=== PATIENT | male | born 1945 | race Caucasian/White ===

== ENCOUNTER 2016-12-01 16:34 | Inpatient (IN) | payer OTHER, MEDICARE ==
--- NOTE | 2016-12-01 16:48 | EDPHY ---
H & P Time Seen by Provider: 12/01/16 16:47 HPI/ROS: CHIEF COMPLAINT: Shortness of breath HISTORY OF PRESENT ILLNESS: This 71-year-old man had a pulmonary embolism 4 years ago and is not currently anticoagulated. He has been increasingly short of breath over the last 3 weeks and symptoms are moderate to severe today and that going just up a 40 foot incline he gets short of breath whereas normally he can do a 1.2 mile circular walk without really any symptoms. No cough or chest pain. Associated 2 days ago with transient left leg pain. No leg swelling. Worse with exertion. REVIEW OF SYSTEMS: Eye: no change in vision ENT: no sore throat Cardiac: no chest pain or syncope Pulmonary: no cough or SOB Abdomen: no vomiting, diarrhea, abdominal pain Musculoskeletal: no back pain Skin: no rash Neuro: no headache Constitutional: no fever : no urinary symptoms A comprehensive 10 point review of systems is otherwise negative aside from elements mentioned in the history of present illness. PAST MEDICAL HISTORY: Pulmonary embolism, left hip replacement, lumbar fusion. Family history positive for venous thromboembolism in his mother. Social history: , nonsmoker. General Appearance: Alert and conversant, cooperative. Eyes: No scleral icterus. ENT, Mouth: Normal mucous membranes. Respiratory: Normal respiratory effort, breath sounds equal, lungs are clear to auscultation. Cardiovascular: Regular rate and rhythm. Gastrointestinal: Abdomen is soft and non tender. Neurological: Alert and oriented x3. Normally conversant. Face symmetric, normal movement and sensation in all extremities. Skin: Warm and dry, no rashes. Musculoskeletal: No peripheral edema and no joint swelling. Psychiatric: Not agitated. Emergency Department course/MDM: Plan for CT chest, EKG and troponin. Moderate to high suspicion for pulmonary embolism, recurrent. 1750: Results discussed, CT angiography reviewed personally by myself and discussed with Dr. Webb at 5:45 p.m. is high volume pulmonary emboli bilateral. Lovenox 1mg/kg SQ, given in ED, admit for further monitoring. Smoking Status: Never smoked Constitutional: Initial Vital Signs Temperature (C) 36.6 C 12/01/16 16:39 Heart Rate 63 12/01/16 16:39 Respiratory Rate 18 12/01/16 16:39 Blood Pressure 160/96 H 12/01/16 16:39 O2 Sat (%) 95 12/01/16 16:39 O2 Delivery Mode Room Air Allergies/Adverse Reactions: No Known Allergies Allergy (Verified 05/24/12 20:35) Home Medications: Medication Instructions Recorded Aspirin [Aspirin 81mg (OTC)] 81 mg PO DAILY 05/24/12 Calcium Carbonate [Tums 500MG 500 mg PO HS PRN 05/24/12 (OTC)] Ranitidine HCl [Zantac] 150 mg PO HS PRN 12/01/16 Medical Decision Making - Diagnostics EKG Interpretation: 12-lead EKG interpreted by me; official reading is in trace master. My interpretation is sinus rhythm with right bundle branch block and left anterior fascicular block without acute ischemic changes, unchanged from 05/26/2012. Imaging: CT pulmonary arteriogram personally evaluated by myself shows bilateral pulmonary emboli. Differential Diagnosis: Differential diagnosis considered for shortness of breath including but not limited to pulmonary infectious process, COPD, asthma, pulmonary embolus and congestive heart failure. Consult/Admit Bed Type: [place] 638pm - Data Points Laboratory Results: Laboratory Results 12/01/16 17:04 12/01/16 17:04 12/01/16 12/01/16 12/01/16 17:04 17:04 17:04 WBC 11.01 10^3/uL H 10^3/uL (3.80-9.50) RBC 5.25 10^6/uL 10^6/uL (4.40-6.38) Hgb 16.4 g/dL g/dL (13.7-17.5) POC Hgb 16.0 gm/dL gm/dL (14.5-17.3) Hct 47.5 % % (40.0-51.0) POC Hct 47 % % (42.8-50.6) MCV 90.5 fL fL (81.5-99.8) MCH 31.2 pg pg (27.9-34.1) MCHC 34.5 g/dL g/dL (32.4-36.7) RDW 13.4 % % (11.5-15.2) Plt Count 155 10^3/uL 10^3/uL (150-400) MPV 9.5 fL fL (8.7-11.7) Neut % (Auto) Not Reported Lymph % (Auto) Not Reported [place] % (Auto) Not Reported Eos % (Auto) Not Reported Baso % (Auto) Not Reported Nucleat RBC Rel Count 0.0 % % (0.0-0.2) Absolute Neuts (auto) Not Reported Absolute Lymphs (auto) Not Reported Absolute Monos (auto) Not Reported Absolute Eos (auto) Not Reported Absolute Basos (auto) Not Reported Absolute Nucleated RBC 0.00 10^3/uL 10^3/uL (0-0.01) Immature Gran % Not Reported Seg Neutrophils % 67 % % Band Neutrophils % 5 % % Lymphocytes % 24 % % Monocytes % 4 % % Immature Gran # Not Reported Absolute Seg Neuts 7.38 10^/uL H 10^/uL (1.70-6.50) Absolute Band Neuts 0.55 10^3/uL 10^3/uL (0.00-0.70) Absolute Lymphocytes 2.64 10^3/uL 10^3/uL (1.00-3.00) Absolute Monocytes 0.44 10^3/uL 10^3/uL (0.30-0.80) RBC/WBC/PLT Morphology NORMAL (NORMAL) Hypersegmented Neuts 1+ H Atypical Lymphocytes 1+ H Platelet Estimate ADEQUATE (ADEQ) POC Sodium 142 mEq/L mEq/L (134-144) Sodium 139 mEq/L mEq/L (134-144) POC Potassium 3.8 mEq/L mEq/L (3.3-5.0) Potassium 4.0 mEq/L mEq/L (3.5-5.2) POC Chloride 108 mEq/L mEq/L (96-108) Chloride 108 mEq/L mEq/L (97-110) Carbon Dioxide 22 mEq/l mEq/l (22-31) Anion Gap 9 mEq/L mEq/L (8-16) POC BUN 24 mg/dL H mg/dL (7-23) BUN 24 mg/dL H mg/dL (7-23) Creatinine 1.1 mg/dL mg/dL (0.7-1.3) POC Creatinine 1.1 mg/dL mg/dL (0.8-1.5) Estimated GFR > 60 Glucose 90 mg/dL mg/dL (70-100) POC Glucose 94 mg/dL mg/dL (70-100) Calcium 9.1 mg/dL mg/dL (8.5-10.4) Troponin I 0.040 ng/mL H ng/mL (0-0.034) Medications Given: Discontinued Medications Enoxaparin Sodium (Lovenox) 85 mg SC EDNOW ONE Stop: 12/01/16 18:39 Last Admin: 12/01/16 19:07 Dose: 85 mg Point of Care Test Results: 12/01/16 17:04 POC Sodium 142 POC Potassium 3.8 POC Chloride 108 POC BUN 24 H POC Creatinine 1.1 POC Glucose 94 Departure - Departure Disposition: [facility] Inpatient Acute Clinical Impression: Pulmonary emboli Qualifiers: Pulmonary embolism type: other Chronicity: acute Acute cor pulmonale presence: without acute cor pulmonale Qualified Code(s): I26.99 - Other pulmonary embolism without acute cor pulmonale Condition: Fair
[2016-12-01] MEDS ORDERED: IOPAMIDOL (ISOVUE 370) 100 ML BTL IV ONE (17:15)
--- NOTE | 2016-12-01 17:17 | CPEKG ---
Heart Rate: 54 RR Interval: 1111 P-R Interval: 196 QRSD Interval: 140 QT Interval: 472 QTC Interval: 448 P Brusly: 20 QRS Brusly: -79 T Wave Brusly: -36 EKG Severity - ABNORMAL ECG - EKG Impression: SINUS RHYTHM EKG Impression: RBBB AND LAFB Electronically Signed By: Braden Oleary 01-Dec-2016 17:26:51
[2016-12-01 17:20] LABS: ADD DIFF? YES; ADD MORPH? NO; ADD SCAN? NO; ATYPICAL LYMPHOCYTE FLAG 0 (0-99); FRAGMENT RBC FLAG 0 (0-99); HEMATOCRIT 47.5 % (40.0-51.0); HEMOGLOBIN 16.4 g/dL (13.7-17.5); LEFT SHIFT FLG 20 (0-99); LIPEMIA HEMOLYSIS FLAG 90 (0-99); MEAN CELL HEMOGLOBIN 31.2 pg (27.9-34.1); MEAN CELL HEMOGLOBIN CONCENTR. 34.5 g/dL (32.4-36.7); MEAN CELL VOLUME 90.5 fL (81.5-99.8); MEAN PLATELET VOLUME 9.5 fL (8.7-11.7); PLATELET CLUMPS FLAG 0 (0-99); PLATELET COUNT 155 10^3/uL (150-400); RED BLOOD CELL COUNT 5.25 10^6/uL (4.40-6.38); RED CELL DISTRIBUTION WIDTH 13.4 % (11.5-15.2)
[2016-12-01 17:38] LABS: ANION GAP 9 mEq/L (8-16); CALCIUM 9.1 mg/dL (8.5-10.4); CARBON DIOXIDE 22 mEq/l (22-31); CHLORIDE 108 mEq/L (97-110); CREATININE 1.1 mg/dL (0.7-1.3); GLOMERULAR FILTRATION RATE > 60; GLUCOSE 90 mg/dL (70-100); SODIUM 139 mEq/L (134-144)
[2016-12-01 17:40] LABS: PLATELET ESTIMATE ADEQUATE (ADEQ)
[2016-12-01 17:44] LABS: HYPERSEGMENTED NEUTROPHILS 1+
[2016-12-01] MEDS ORDERED: ENOXAPARIN 100 MG/ML SYR SC ONE (18:38)
[2016-12-01] MEDS ORDERED: ONDANSETRON 4 MG/2 ML VIAL IVP PRN (19:02)
[2016-12-01] MEDS ORDERED: ACETAMINOPHEN 325 MG TAB PO PRN (19:02)
[2016-12-01] MEDS ORDERED: ONDANSETRON DISINTEGRATING 4 MG TAB PO PRN (19:02)
[2016-12-01 19:04] LABS: INR 1.53 (0.83-1.16); PROTIME(PATIENT) 18.4 SEC (12.0-15.0)
[2016-12-01] MEDS: WARFARIN SODIUM 7.5 MG TAB PO SCH (20:43)
[2016-12-01] MEDS ORDERED: CALCIUM CARBONATE 500 MG CHEWABLE TAB PO PRN (20:48)
[2016-12-01] MEDS ORDERED: FAMOTIDINE 20 MG TAB PO PRN (21:00)
--- NOTE | 2016-12-01 22:24 | GHP ---
[f rep st] HISTORY AND PHYSICAL DATE OF ADMISSION: 12/01/2016 The patient is a 71-year-old gentleman with a history of MGUS and PE who presents with a several wee ks' history of shortness of breath. This started few weeks ago in [place]. This is the first time he has sought care. It got worse tonight. He has not had hemoptysis. He has not had swelling in his legs. He has not had long car trips or plane trips. He has not had recent surgery or hospitalizati ons. He stopped taking Coumadin about 2 years ago. He has been on a daily aspirin since. He curre ntly feels well without presyncopal symptoms, but he does have dyspnea. REVIEW OF SYSTEMS: Complete 10-point review of systems conducted and negative except as noted in th e HPI. PAST MEDICAL HISTORY: 1. MGUS followed by Dr. Sandoval. Due to see him in 2 weeks. 2. Pulmonary embolism, large, during his last hospitalization in 2011. ALLERGIES: No known drug allergies. HOME MEDICATIONS: Aspirin. SOCIAL HISTORY: He has 1-2 glasses of wine, small, daily. Nonsmoker. Lives in [place]. Retired. FAMILY HISTORY: Notable for a PE in his mother and brother. She has a filter. PHYSICAL EXAMINATION: VITAL SIGNS: Temp 36.6, blood pressure 160/96, pulse 63, breathing 18 times a minute, 95% on room air. GENERAL: No acute distress. HEENT: Sclerae anicteric. Oropharynx ramírez ar. Mucous membranes are moist. NECK: Supple without lymphadenopathy or JVD. LUNGS: Clear to au scultation bilaterally. HEART: S1, S2 without split S2. ABDOMEN: Soft, nontender, nondistended. LOWER EXTREMITIES: There is trace edema of the right leg. There is no edema on the left. Calves nontender. SKIN: Without rash. NEUROLOGIC: Nonfocal. LABORATORY DATA: Sodium 139, potassium 4.0, chloride 108, bicarb 22, BUN 24, creatinine 1.1. His b aseline creatinine is about 1.1. Troponin 0.04. This is similar to the levels he had in May with his pulmonary embolism. CTA of the chest shows large bilateral PE's with no pulmonary infarc t. This is described as large clot burden. EKG, interpreted by me, shows sinus rhythm, right bundl e branch block and left anterior fascicular block. No ST or T-wave changes. I discussed the case w ith Dr. Braden Oleary. ASSESSMENT AND PLAN: This is a 71-year-old gentleman with recurrent pulmonary embolism. 1. Pulmonary embolism. Large clot burden that is apparently tolerated well hemodynamically. For t he time being, he is noted to be bradycardic with normal blood pressures. He did have an enlarged r ight ventricle on CT. 2. Given the size of his clot burden, I will check bilateral ultrasounds (he does have some edema o n the right) and an echocardiogram. If he has a combination of large DVT and right heart strain, he may be a candidate for a filter. If not he probably does not warrant one. We start him on enoxapa rin. 3. Monoclonal gammopathy of undetermined significance. This is followed as an outpatient. 4. Hypertension. We will follow. 5. Elevated troponin. This is indicative of right heart strain. 6. Elevated BUN. The patient appears euvolemic. We will follow. 7. Prophylaxis. Pharmacologic prophylaxis contraindicated in that he is therapeutically anticoagul ated. DISPOSITION: Inpatient status. /[id number]/MODL
[2016-12-02 04:39] LABS: INR 1.63 (0.83-1.16); PROTIME(PATIENT) 19.4 SEC (12.0-15.0)
[2016-12-02 04:53] LABS: ABSOLUTE IMMATURE GRANULOCYTES 0.28 10^3/uL (0.00-0.10); ADD DIFF? NO; ADD MORPH? NO; ADD SCAN? NO; ATYPICAL LYMPHOCYTE FLAG 0 (0-99); FRAGMENT RBC FLAG 0 (0-99); HEMATOCRIT 44.7 % (40.0-51.0); HEMOGLOBIN 15.4 g/dL (13.7-17.5); LEFT SHIFT FLG 20 (0-99); LIPEMIA HEMOLYSIS FLAG 90 (0-99); MEAN CELL HEMOGLOBIN 31.9 pg (27.9-34.1); MEAN CELL HEMOGLOBIN CONCENTR. 34.5 g/dL (32.4-36.7); MEAN CELL VOLUME 92.5 fL (81.5-99.8); MEAN PLATELET VOLUME 9.9 fL (8.7-11.7); PLATELET CLUMPS FLAG 0 (0-99); PLATELET COUNT 144 10^3/uL (150-400); RED BLOOD CELL COUNT 4.83 10^6/uL (4.40-6.38); RED CELL DISTRIBUTION WIDTH 13.4 % (11.5-15.2)
[2016-12-02 04:56] LABS: ANION GAP 8 mEq/L (8-16); CARBON DIOXIDE 23 mEq/l (22-31); CHLORIDE 109 mEq/L (97-110); GLUCOSE 91 mg/dL (70-100); POTASSIUM 4.1 mEq/L (3.5-5.2); SODIUM 140 mEq/L (134-144)
[2016-12-02 04:57] LABS: CALCIUM 9.2 mg/dL (8.5-10.4); GLOMERULAR FILTRATION RATE > 60
[2016-12-02 05:06] LABS: TROPONIN I 0.021 ng/mL (0-0.034)
[2016-12-02] MEDS: ENOXAPARIN 80 MG/0.8 ML SYR SC SCH ×3 (08:40→20:39)
--- NOTE | 2016-12-02 12:32 | HOSPPROG ---
Hospitalist Progress Note Assessment/Plan: DIAGNOSES: # acute recurrent pulmonary emboli and bilateral DVT legs -2nd episode, was on aspirin at this time PLANS: -Continue current anticoagulation -I have reviewed with the patient the options for either using warfarin as he did in the past or newer oral anticoagulation at discharge and he will consider the option -Anticipate likely discharge home tomorrow if he remains stable SUBJECTIVE: no chest pain, no dyspnea, ambulating well in the hallway No bleeding symptoms OBJECTIVE Vitals reviewed: normal vital signs Associate Art Director, my review: All sinus rhythm Exam: alert oriented skin warm dry color ok No signs of bleeding or bruising resps not labored lungs clear BSs heart regular abd soft nondistended nontender, bowel sounds present limbs warm, no edema iv site ok Doppler ultrasound of legs reviewed: Bilateral DVTs present Objective: Vital Signs Temp Pulse Resp BP Pulse Ox 36.5 C 58 L 18 149/90 H 92 12/02/16 08:00 12/02/16 08:00 12/02/16 08:00 12/02/16 08:00 12/02/16 08:00 Laboratory Results 12/02/16 03:59 12/02/16 03:59 12/01/16 12/02/16 12/03/16 06:59 06:59 06:59 Intake Total 400 Balance 400 PT 19.4 SEC (12.0-15.0) H 12/02/16 03:59 INR 1.63 (0.83-1.16) H 12/02/16 03:59 ICD10 Worksheet Patient Problems: Problems Problem Status Onset Pulmonary emboli Acute Sepsis - Septicemia Active
--- NOTE | 2016-12-02 12:43 | ECHO ---
[id number] + + [address] : : [place] [address] : : [phone] + + Adult Echocardiographic Report + + :Name: RADHA GEORGE Brittney Date: 12/02/2016 10:11 AM BP: 144/90 mmHg : : Hospital Admission Number: [id number] Location: 204: :: 1945 Gender: Male Height: 70 in : :Age: 71 yrs Race: WH Weight: 188 lb : :Reason For Study: rt heart strain : : BSA: 2.0 meters2 : :History: large pulmonary embolism, incr trop : + + MMode/2D Measurements \T\ Calculations IVSd: 1.0 cm RVDd: 3.4 cm FS: 37.6 % LVLd ap4: 8.7 cm LVPWd: 1.2 cm LVIDd: 4.5 cmEDV(Teich): 92.1 mlEDV(MOD-sp4): 137.0 ml LVIDs: 2.8 cmESV(Teich): 29.6 mlLVLs ap4: 6.8 cm EF(Teich): 67.8 % ESV(MOD-sp4): 45.0 ml EF(MOD-sp4): 67.2 % SV(MOD-sp4): 92.0 ml Normal Measurement Values: + + :LVIDd (3.5-5.7cm) IVSd (0.6-1.1cm) LVPWd (0.6-1.1cm) Aortic Root (2.0-3.7cm)Left Atrium (1.5-4.0cm): :LV Vol(d) (76-115ml) LV Vol(s) (29-48ml) Ejec Fraction (50-65%)PV Amando (0.6- 1.2m/s) TV Amando (0.4-1.0m/s) : :MV E Amando (0.8-1.0m/s)MV A Amando (0.3-1.0m/s)LVOT Amando (0.7-1.2m/s) Asc Ao Amando ( 0.9-1.8m/s) : + + Doppler Measurements \T\ Calculations MV E max amando: Ao V2 max: LV V1 max: PA V2 max: 50.3 cm/sec 109.8 cm/sec 74.0 cm/sec 68.8 cm/sec MV A max amando: Ao max P.8 mmHgLV V1 max PG: PA max P.6 cm/sec 2.2 mmHg 1.9 mmHg MV E/A: 0.72 MV dec time: 0.31 sec TR max amando: 274.2 cm/sec TR max P.1 mmHg RAP systole: 5.0 mmHg RVSP(TR): 35.1 mmHg Left Ventricle The left ventricle is normal in size and function. There is mild concentric left ventricular hypertrophy. Ejection Fraction = 65%. No regional wall motion abnormalities noted. Right Ventricle The right ventricle is normal in size and function. Atria The left atrial size is normal. Right atrial size is normal. Mitral Valve The mitral valve is normal in structure and function. There is no mitral valve stenosis. There is trace to mild mitral regurgitation. Tricuspid Valve The tricuspid valve is normal in structure and function. There is no tricuspid stenosis. There is mild tricuspid regurgitation. Right ventricular systolic pressure is 35mmHg. There is Doppler evidence for mild pulmonary hypertension. Aortic Valve The aortic valve is trileaflet. There is no aortic stenosis. Trace aortic regurgitation. Pulmonic Valve The pulmonic valve is not well visualized. Great Vessels The aortic root is normal size. Pericardium/Pleural There is no pericardial effusion. Conclusion A two-dimensional transthoracic echocardiogram with M-mode and Doppler was performed. The left ventricle is normal in size and function. There is mild concentric left ventricular hypertrophy. Ejection Fraction = 65%. Trace to mild mitral regurgitation. Mild tricuspid regurgitation.Trace AI Right ventricular systolic pressure is 35mmHg. Final Reading Physician: Aaliyah Edmond signed on 12/02/2016 12:41 PM Ordering Physician: Ivan Bautista Performed By: Altagracia Mcelroy
[2016-12-02] MEDS: WARFARIN SODIUM 7.5 MG TAB PO SCH (16:37)
[2016-12-03 04:36] LABS: INR 2.1 (0.83-1.16); PROTIME(PATIENT) 23.7 SEC (12.0-15.0)
[2016-12-03] MEDS: ENOXAPARIN 80 MG/0.8 ML SYR SC SCH (08:07)
[2016-12-03] MEDS ORDERED: ENOXAPARIN 80 MG/0.8 ML SYR SC SCH ×3 (10:26→21:00)
[2016-12-03 11:47] VITALS: BP 148/88; PULSE 58; RESP 19; TEMP 97.9; O2SAT 93
[2016-12-03] MEDS ORDERED: WARFARIN SODIUM 5 MG TAB PO SCH (16:00)
--- NOTE | 2016-12-03 20:00 | GDS ---
[f rep st] DISCHARGE SUMMARY DISCHARGE DIAGNOSES: 1. Recurrent bilateral pulmonary emboli. 2. Bilateral deep venous thrombosis. 3. Monoclonal gammopathy of undetermined significance, followed by Dr. Sandoval. CONSULTANTS: None. HISTORY: For details please see dictated history and physical dated December 01, 2016. In brief, anthony ann patient is a 71-year-old male with a history of MGUS and prior pulmonary embolism in 2011, presen dinorah to the emergency department with several weeks of shortness of breath. CT pulmonary angiogram i n the emergency department revealed large bilateral pulmonary emboli without pulmonary infarct. He was admitted to the hospital for further management. HOSPITAL COURSE: The patient is admitted to telemetry unit. Despite his large clot burden, he jose ined hemodynamically stable. Bilateral lower extremity ultrasounds were performed and revealed reth rombosis of the popliteal and calf veins on the left lower extremity. The patient had no significan t swelling or pain. He was started on Lovenox and warfarin was started the following day. He recei sara 2 days of warfarin at 7.5 mg daily and his INR lenka from 1.5 on admission to 2.1. It is unclear why his INR is elevated on arrival. Therefore, on discharge, his Coumadin dose is reduced to 5 mg daily. The plan is to continue overlapping Coumadin with Lovenox for 3 more days at the time of dis charge for a total of 5 days of overlap. He did not require oxygen supplementation throughout his h ospitalization nor did he develop any hypotension. He does give a history of his mother having pulm onary emboli, so there was some suspicion for an underlying hypercoagulable disorder. Since he star dinorah on anticoagulation, at this point I will defer further hypercoagulable workup to Hematology and recommended the patient follow up with his occupational therapy instructor, Dr. Sandoval, to discuss this. DISPOSITION: Patient is discharged home in stable condition. FOLLOWUP: 1. Dr. Cristin Sandoval, hematology, at [facility]. 2. Dr. Jose Church, primary care provider. 3. [facility] for an INR on Monday. DISCHARGE MEDICATIONS: Please see [facility] for complete updated outpatient medication list. New me dications on discharge include Lovenox 80 mg subcutaneous b.i.d. #6, no refills and warfarin 5 mg p. o. daily #30, no refills. Aspirin will be discontinued as he is starting anticoagulation therapy to reduce bleeding risk. He will continue his calcium carbonate and ranitidine as previously prescrib ed. /[id number]/MODL
== END 2016-12-03 13:33 | disposition home or self-care (01) | DRG 176 ==
LOC: F2W 19:36
PROVIDERS: ADMIT Internal Medicine; ATTEND Internal Medicine
DX: I26.99 Other pulmonary embolism without acute cor pulmonale (principal); I82.432 Acute embolism and thrombosis of left popliteal vein; I82.442 Acute embolism and thrombosis of left tibial vein; D47.2 Monoclonal gammopathy; Z86.711 Personal history of pulmonary embolism; Z98.1 Arthrodesis status; Z96.642 Presence of left artificial hip joint; Z83.2 Family history of diseases of the blood and blood-forming organs and certain disorders involving the immune mechanism
CPT/HCPCS: 82495-90; 82784-90; 82947-QW; 86334-90; J1650; Q9967

== ENCOUNTER 2018-07-14 20:48 | Inpatient (IN) | payer OTHER, MEDICARE ==
[2018-07-14] MEDS ORDERED: NS 1,000 ML IV ONE (21:25)
--- NOTE | 2018-07-14 21:28 | EDPHY ---
H & P Stated Complaint: left [facility] to come to [facility] for hospitalization, has cholecystitis Time Seen by Provider: 07/14/18 21:11 HPI/ROS: CHIEF COMPLAINT: Cholecystitis Limitations: Patient had Dilaudid prior to transfer and is unable to recall much of the clinical history; hx via and [facility] HISTORY OF PRESENT ILLNESS: 72-year-old male with mommoclonal gammopathy and prior PE on Xarelto presents with cholecystitis. Onset of right upper quadrant pain 2 days ago. He presented to [facility] and was admitted for right upper quadrant pain. Right upper quadrant ultrasound reveals a calcified gallstone, no evidence of cholecystitis. CT scan was unremarkable. However cholecystitis was suspected because of persistent right upper quadrant pain, leukocytosis, fever, so HIDA scan was obtained.. HIDA scan at 1700 today revealed acute cholecystitis. Ceftriaxone 1 g IV given. The patient decided to leave [facility] and came directly to [facility]. Does not have testing results with him. REVIEW OF SYSTEMS: complete 10 point ROS reviewed and is negative except for the noted elements in the HPI - Personal History Current Tetanus/Diphtheria Vaccine: Yes - Medical/Surgical History Hx Asthma: No Hx Chronic Respiratory Disease: No Hx Diabetes: No Hx Cardiac Disease: No Hx Renal Disease: No Hx Cirrhosis: No Hx Alcoholism: No Hx HIV/AIDS: No Hx Splenectomy or Spleen Trauma: No Other PMH: PE/DVT x2, Left MAYNOR, lumbar fusion/lami L5-S1, hip replacement, mgus (protien prob in blood), - Social History Smoking Status: Never smoked - Physical Exam Exam: General Appearance: Alert, pleasant, nontoxic-appearing Eyes: Pupils equal and round, no conjunctival pallor ENT, Mouth: Mucous membranes moist Neck: Normal inspection Respiratory: Lungs are clear to auscultation Cardiovascular: Regular rate and rhythm Gastrointestinal: Abdomen is soft, right upper quadrant tenderness Neurological: A&O, nonfocal, normal gait Skin: Warm and dry Extremities: Nontender, no pedal edema Psychiatric: Mood and affect normal Constitutional: Initial Vital Signs Temperature (C) 37.5 C 07/14/18 20:54 Heart Rate 95 07/14/18 20:54 Respiratory Rate 18 07/14/18 20:54 Blood Pressure 135/71 H 07/14/18 20:54 O2 Sat (%) 88 L 07/14/18 20:54 O2 Delivery Mode Room Air O2 (L/minute) 2 Allergies/Adverse Reactions: No Known Allergies Allergy (Verified 07/14/18 20:51) Home Medications: Medication Instructions Recorded Calcium Carbonate [Tums 500MG (*)] 500 mg PO HS PRN 07/15/18 Omeprazole 20 mg PO DAILY PRN 07/15/18 Rivaroxaban [Xarelto 10mg (*)] 10 mg PO DAILY 07/15/18 celeCOXIB [Celecoxib] 200 mg PO DAILY PRN 07/15/18 Medical Decision Making ED Course/Re-evaluation: Old medical record reviewed on [facility]. Evaluation reveals acute cholecystitis. He has already received ceftriaxone IV. Flagyl IV given. Dilaudid IV given for pain control. Dr. Martinez consulted and saw the pt in the ED. The hospitalist service was consulted for admission. Differential Diagnosis: Differential diagnosis includes though it is not limited to appendicitis, cholecystitis, diverticulitis, pyelonephritis, bowel perforation, small bowel obstruction. - Data Points Laboratory Results: Laboratory Results 07/14/18 21:35 07/14/18 21:35 Medications Given: Acetaminophen (Tylenol) 650 mg PO Q4HRS PRN PRN Reason: Pain, Mild/Fever, Can Take PO Stop: 01/10/19 22:39 Last Admin: 07/15/18 00:44 Dose: 650 mg Hydromorphone HCl (Dilaudid) 0.2 - 0.4 mg IVP Q4HRS PRN PRN Reason: Pain, Severe Unable to Take PO Stop: 07/24/18 22:39 Last Admin: 07/15/18 12:34 Dose: 0.4 mg Ceftriaxone Sodium/Dextrose (Rocephin 1 Gm (Premix)) 50 mls @ 100 mls/hr IV DAILY JAZMIN PRN Reason: Protocol Stop: 08/14/18 08:59 Last Admin: 07/15/18 08:44 Dose: 50 mls Metronidazole/Sodium Chloride (Flagyl 500 Mg (Premix)) 100 mls @ 100 mls/hr IV Q8HRS JAZMIN PRN Reason: Protocol Stop: 08/14/18 05:59 Last Admin: 07/15/18 06:12 Dose: 100 mls Heparin Sodium (Porcine) (Heparin 50 Units/Ml (Premix)) 500 mls @ 0 mls/hr IV CONT JAZMIN; Per Protocol PRN Reason: Protocol Stop: 01/10/19 23:29 Last Admin: 07/15/18 04:21 Dose: 500 mls Dextrose/Sodium Chloride (D5w 1/2 Ns) 1,000 mls @ 100 mls/hr IV CONT JAZMIN Stop: 01/10/19 23:44 Last Admin: 07/15/18 00:37 Dose: 1,000 mls Discontinued Medications Acetaminophen (Tylenol) 650 mg PO ONCE ONE Stop: 07/15/18 12:01 Last Admin: 07/15/18 12:26 Dose: 650 mg Diphenhydramine HCl (Benadryl) 25 mg PO ONCE ONE Stop: 07/15/18 12:01 Last Admin: 07/15/18 12:26 Dose: 25 mg Hydromorphone HCl (Dilaudid) 0.5 mg IVP EDNOW ONE Stop: 07/14/18 22:26 Last Admin: 07/14/18 22:44 Dose: 0.5 mg Sodium Chloride (Ns) 1,000 mls @ 0 mls/hr IV EDNOW ONE; Wide Open PRN Reason: Protocol Stop: 07/14/18 21:26 Last Admin: 07/14/18 21:41 Dose: 1,000 mls Metronidazole/Sodium Chloride (Flagyl 500 Mg (Premix)) 100 mls @ 100 mls/hr IV EDNOW ONE PRN Reason: Protocol Stop: 07/14/18 22:43 Last Admin: 07/14/18 21:57 Dose: 100 mls Immune Globulin (Privigen 20 Gm) 20 gm IV ONCE ONE PRN Reason: Protocol Stop: 07/15/18 12:01 Last Admin: 07/15/18 15:26 Dose: 20 gm Immune Globulin (Privigen 5 Gm) 5 gm IV ONCE ONE PRN Reason: Protocol Stop: 07/15/18 12:01 Last Admin: 07/15/18 13:49 Dose: 5 gm Departure - Departure Disposition: [facility] Inpatient Acute Clinical Impression: Cholecystitis Condition: Fair
[2018-07-14 21:46] LABS: PLATELET COUNT 209 10^3/uL (150-400)
[2018-07-14] MEDS ORDERED: HYDROmorphONE/DILAUDID 1 MG/ML INJ ONE (22:23)
[2018-07-14] MEDS ORDERED: HYDROmorphONE/DILAUDID 2 MG/ML INJ IVP ONE (22:25)
[2018-07-14] MEDS ORDERED: ONDANSETRON DISINTEGRATING 4 MG TAB PO PRN (22:40)
[2018-07-14] MEDS ORDERED: ONDANSETRON 4 MG/2 ML VIAL IVP PRN (22:40)
--- NOTE | 2018-07-14 23:20 | PDGENHP ---
History and Physical - Chief Complaint Abdominal pain - History of Present Illness 72 yo M w/ hx of MGUS and recurrent DVT/PE presents with abdominal pain. Patient developed acute onset abdominal pain and nausea on evening. This continued so he presented to [facility] for evaluation. While there he was noted to have a leukocytosis and HIDA scan concerning for possible cholecystitis. At this point patient preferred to come to [facility] for care so he came to our ER. At the time of my evaluation patient is fairly comfortable after pain medication. He continues to be very tender in the RUQ. WBC on admission here is 19.5; he is hemodynamically stable. He has history of fairly extensive PE's in the past. He is on Xarelto for this. His last dose of medication was this morning. He also has a history of MGUS for which he is followed by Dr. Sandoval. He is not currently on treatment for this. Case discussed with ED physician Dr. Carver, surgeon Dr. Martinez, and oncologist Dr. Green. History Information - Allergies/Home Medication List Allergies/Adverse Reactions: No Known Allergies Allergy (Verified 07/14/18 20:51) Home Medications: Calcium Carbonate [Tums 500MG (*)] 500 mg PO HS PRN 05/24/12 [Last Taken ] Ceftriaxone 1 gm-D5w Bag 07/14/18 [Last Taken Unknown] CeleBREX 07/14/18 [Last Taken Unknown] Dilaudid 07/14/18 [Last Taken Unknown] Prilosec 07/14/18 [Last Taken Unknown] Xarelto 07/14/18 [Last Taken Unknown] I have personally reviewed and updated: family history, medical history - Past Medical History DVT, pulmonary embolism Additional medical history: MGUS - Surgical History Reports: spinal surgery Additional surgical history: Hip surgery. Knee surgery - Family History Additional family history: Mother +VTE - Social History Smoking Status: Never smoked Review of Systems Review of Systems: ROS: 10pt was reviewed & negative except for what was stated in HPI & below Physical Exam Physical Exam: Temp Pulse Resp BP Pulse Ox 37.5 C 95 18 135/71 H 93 07/14/18 20:54 07/14/18 20:54 07/14/18 20:54 07/14/18 20:54 07/14/18 21:25 Constitutional: appears nourished, uncomfortable Eyes: PERRL, EOMI Ears, Nose, Mouth, Throat: moist mucous membranes, no oral mucosal ulcers Cardiovascular: regular rate and rhythym, no murmur, rub, or gallop Respiratory: no respiratory distress, clear to auscultation Gastrointestinal: normoactive bowel sounds, tenderness (RUQ), hull's sign, distension, No guarding, No rebound Skin: warm, normal color Musculoskeletal: full muscle strength, no muscle tenderness Neurologic: AAOx3, CN II-XII Intact Psychiatric: interacting appropriately, not anxious Lab Data & Imaging Review 07/14/18 21:35 07/14/18 21:35 WBC 19.50 10^3/uL (3.80-9.50) H 07/14/18 21:35 RBC 5.14 10^6/uL (4.40-6.38) 07/14/18 21:35 Hgb 15.6 g/dL (13.7-17.5) 07/14/18 21:35 Hct 46.4 % (40.0-51.0) 07/14/18 21:35 MCV 90.3 fL (81.5-99.8) 07/14/18 21:35 MCH 30.4 pg (27.9-34.1) 07/14/18 21:35 MCHC 33.6 g/dL (32.4-36.7) 07/14/18 21:35 RDW 13.4 % (11.5-15.2) 07/14/18 21:35 Plt Count 209 10^3/uL (150-400) 07/14/18 21:35 MPV 9.3 fL (8.7-11.7) 07/14/18 21:35 Neut % (Auto) 82.4 % (39.3-74.2) H 07/14/18 21:35 Lymph % (Auto) 6.2 % (15.0-45.0) L 07/14/18 21:35 Stoddard % (Auto) 10.3 % (4.5-13.0) 07/14/18 21:35 Eos % (Auto) 0.1 % (0.6-7.6) L 07/14/18 21:35 Baso % (Auto) 0.2 % (0.3-1.7) L 07/14/18 21:35 Nucleat RBC Rel Count 0.0 % (0.0-0.2) 07/14/18 21:35 Absolute Neuts (auto) 16.07 10^3/uL (1.70-6.50) H 07/14/18 21:35 Absolute Lymphs (auto) 1.21 10^3/uL (1.00-3.00) 07/14/18 21:35 Absolute Monos (auto) 2.01 10^3/uL (0.30-0.80) H 07/14/18 21:35 Absolute Eos (auto) 0.02 10^3/uL (0.03-0.40) L 07/14/18 21:35 Absolute Basos (auto) 0.04 10^3/uL (0.02-0.10) 07/14/18 21:35 Absolute Nucleated RBC 0.00 10^3/uL (0-0.01) 07/14/18 21:35 Immature Gran % 0.8 % (0.0-1.1) 07/14/18 21:35 Immature Gran # 0.16 10^3/uL (0.00-0.10) H 07/14/18 21:35 RBC/WBC/PLT Morphology TNP 07/14/18 21:35 Platelet Estimate TNP 07/14/18 21:35 Sodium 135 mEq/L (135-145) 07/14/18 21:35 Potassium 4.0 mEq/L (3.3-5.0) 07/14/18 21:35 Chloride 102 mEq/L (97-110) 07/14/18 21:35 Carbon Dioxide 23 mEq/l (22-31) 07/14/18 21:35 Anion Gap 10 mEq/L (8-16) 07/14/18 21:35 BUN 13 mg/dL (7-23) 07/14/18 21:35 Creatinine 1.0 mg/dL (0.7-1.3) 07/14/18 21:35 Estimated GFR > 60 07/14/18 21:35 Glucose 89 mg/dL (70-100) 07/14/18 21:35 Calcium 9.1 mg/dL (8.5-10.4) 07/14/18 21:35 Total Bilirubin 2.4 mg/dL (0.1-1.4) H 07/14/18 21:35 Conjugated Bilirubin 0.3 mg/dL (0.0-0.5) 07/14/18 21:35 Unconjugated Bilirubin 2.1 mg/dL (0.0-1.1) H 07/14/18 21:35 AST 19 IU/L (17-59) 07/14/18 21:35 ALT 32 IU/L (21-72) 07/14/18 21:35 Alkaline Phosphatase 80 IU/L (38-126) 07/14/18 21:35 Total Protein 5.7 g/dL (6.3-8.2) L 07/14/18 21:35 Albumin 3.2 g/dL (3.5-5.0) L 07/14/18 21:35 Lipase 28 IU/L (23-300) 07/14/18 21:35 Assessment & Plan Assessment: 72 yo M w/ hx of MGUS and recurrent DVT/PE presents with likely acute cholecystitis. Plan: 1. Acute cholecystitis - WBC 19.5; GB not visualized after 60 minutes on HIDA scan performed at [facility]. Continues to have significant RUQ pain currently. Situation complicated by anticoagulation as he takes Xarelto for hx of DVT/PE. - CTX/Flagyl IV for antibiotic coverage - Discussed case with Dr. Martinez, he will review surgical options with patient - Maintain NPO, mIVF - Discussed case with Dr. Green; will bridge patient with heparin gtt noting high risk for VTE - Pain control with Dilaudid IV PRN 2. Hx DVT/PE - Last high volume, bilateral, diffuse pulmonary emboli on 12/02. He has had multiple clotting events and is high risk for recurrent VTE. - Hold Xarelto - Bridge with heparin gtt in elizabet-operative period - Discussed case with Dr. Green 3. MGUS - Followed by Dr. Sandoval; not currently on treatment. - Oncology consulted, appreciate assistance Diet - NPO Code - Full Ppx - heparin gtt Dispo - Admit under inpatient status
[2018-07-14] MEDS ORDERED: HEPARIN 10,000 UNIT/10 ML MDV (1,000 UNIT/ML) IVP PRN (23:30)
--- NOTE | 2018-07-14 23:30 | PDCONSULT ---
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 Ellen Carver Reason for request right upper quadrant abdominal pain Chief complaint: Right upper quadrant abdominal pain History of present illness: This is a 72-year-old gentleman who was admitted for several days at [facility] for right upper quadrant abdominal pain. He had CT scan of the abdomen and ultrasound performed which did not demonstrate inflammation of the gallbladder however the patient had recurrent postprandial abdominal pain. The patient underwent HIDA scan which demonstrated nonfilling of the gallbladder at 60 min consistent with a biliary obstruction or full gallbladder. The patient has a history of MGUS treated by Dr. Hernando Sandoval ([facility]) and has questions regarding the use of IgG or IVIG prior to surgery. Consultation with Oncology Services has been requested. The patient is also on Xarelto for history of DVT and large volume PE x2 in 2017. He was given Xarelto earlier this morning. He transferred from [facility] to coordinate services with [facility] and surgery here at [facility]. Records are reviewed through [employer]. Personal review of PACS images of CT scan ultrasound and HIDA scan with the patient and his spouse Past medical history:MGUS, osteoarthritis, PE, DVT, dyspepsia Past surgical history includes left hip ORIF and lumbar fusion No known drug allergies Home medications Calcium Carbonate [Tums 500MG (*)] 500 mg PO HS PRN 05/24/12 [Last Taken ] Ceftriaxone 1 gm-D5w Bag 07/14/18 [Last Taken Unknown] CeleBREX 07/14/18 [Last Taken Unknown] Dilaudid 07/14/18 [Last Taken Unknown] Prilosec 07/14/18 [Last Taken Unknown] Xarelto 07/14/18 [Last Taken Unknown] Family history is significant for gallbladder disease in sister and father Review of systems is negative except for aforementioned abdominal pain Social history: Denies smoking or illicit drug use Temp Pulse Resp BP Pulse Ox 37.5 C 84 16 114/72 94 07/14/18 20:54 07/14/18 23:14 07/14/18 23:14 07/14/18 23:14 07/14/18 23:14 O2 (L/minute) 2 Alert oriented no distress Sclerae anicteric Oropharynx slightly dry Lungs clear bilaterally Heart regular rate and rhythm Abdomen soft tender in the right upper quadrant positive Cardona sign. Small umbilical hernia. Left of midline lipoma 5 cm x 2 cm nontender Extremities without edema 2+ over 2+ central and peripheral pulses Skin has normal turgor and tone 07/14/18 21:35 07/14/18 21:35 Total Bilirubin 2.4 mg/dL (0.1-1.4) H 07/14/18 21:35 Conjugated Bilirubin 0.3 mg/dL (0.0-0.5) 07/14/18 21:35 Unconjugated Bilirubin 2.1 mg/dL (0.0-1.1) H 07/14/18 21:35 AST 19 IU/L (17-59) 07/14/18 21:35 ALT 32 IU/L (21-72) 07/14/18 21:35 Abdominal pain consistent with acute cholecystitis versus hepatitis. Hepatitis panel at [facility] negative and pending HIDA scan more consistent with acute cholecystitis. Concerns for anticoagulation perioperatively Patient has concerns regarding IVIG for IgG infusion oncology consultation to more morning Options for care include antibiotics and bowel rest, surgical intervention with laparoscopic possible open cholecystectomy and cholecystostomy tube. The patient and his were given the options of care with the risks benefits and alternatives. Verbal confirmation of understanding was obtained. The risks include but are not limited to bleeding, infection, injury to biliary structures that could require further surgery. 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 We will await the oncology consultation may have clear liquids until morning heparin drip for continue old anticoagulation until several hours prior to surgery.
[2018-07-15] MEDS: D5W 1/2 NS 1,000 ML IV SCH (00:37)
[2018-07-15] MEDS: ACETAMINOPHEN 325 MG TAB PO PRN ×2 (00:44→23:48)
[2018-07-15 01:25] LABS: INR 1.68 (0.83-1.16); PROTIME(PATIENT) 19.9 SEC (12.0-15.0)
[2018-07-15] MEDS: HEPARIN/DEXTROSE 500 ML IV SCH ×2 (04:21→23:51)
--- NOTE | 2018-07-15 07:57 | SOAPPROG ---
SOAP Progress Note Assessment/Plan: Assessment/Plan: Water went down well No additional pain o/n Awaiting oncology input On Hep gtt for VTE prophylaxis HD stable Abd soft positive mild hull's sign Clear liq today, NPO p MN Placed on OR schedule for 11 am tomorrow (Jul 16) Risks benefits and alternatives including cholecystostomy tube re addressed Pt wishes to proceed with surgery Lap jimmie Cont ABx ceftriaxone/flagyl for leucocytosis associated with gallbladder obstruction biliary pathogen 07/15/18 07:52 07/15/18 07:57 Objective: Vital Signs Temp Pulse Resp BP Pulse Ox 36.9 C 74 16 108/61 96 07/15/18 07:22 07/15/18 07:22 07/15/18 07:22 07/15/18 07:22 07/15/18 07:22 07/14/18 07/15/18 07/16/18 05:59 05:59 05:59 Intake Total 1000 Balance 1000 PT 19.9 SEC (12.0-15.0) H 07/14/18 21:35 INR 1.68 (0.83-1.16) H 07/14/18 21:35 ICD10 Worksheet Patient Problems: Problems Problem Status Onset Cholecystitis Acute Sepsis - Septicemia Active Pulmonary emboli Acute
[2018-07-15] MEDS: HYDROmorphone HCL 0.5 MG/0.5 ML SYR IVP PRN ×3 (07:58→20:50)
[2018-07-15 08:14] LABS: PLATELET COUNT 173 10^3/uL (150-400)
--- NOTE | 2018-07-15 11:25 | HOSPPROG ---
Hospitalist Progress Note Assessment/Plan: 72 yo M w MGUS, hypogammaglobulinemia, h/o large PE here w acute cholecystitis cholecystitis: ceftriaxone/flagyl lap jimmie in AM hypogammaglobulinemia: heme to see has received IVIg in past for procedures h/o VTE: last xarelto yesterday AM hep gtt now MGUS; heme to se proph: hep gtt dispo: inpt Subjective: case d/w dr lentz. pain improved. questions answered Objective: Vital Signs Temp Pulse Resp BP Pulse Ox 36.9 C 79 16 131/71 H 93 07/15/18 10:54 07/15/18 10:54 07/15/18 10:54 07/15/18 10:54 07/15/18 10:54 Laboratory Results 07/15/18 08:06 07/15/18 10:22 07/14/18 07/15/18 07/16/18 05:59 05:59 05:59 Intake Total 1000 Balance 1000 PT 19.9 SEC (12.0-15.0) H 07/14/18 21:35 INR 1.68 (0.83-1.16) H 07/14/18 21:35 - Physical Exam Constitutional: no apparent distress, appears nourished Eyes: PERRL, anicteric sclera Ears, Nose, Mouth, Throat: moist mucous membranes, hearing normal Cardiovascular: regular rate and rhythym, no murmur, rub, or gallop Respiratory: no respiratory distress, no rales or rhonchi Gastrointestinal: normoactive bowel sounds, hull's sign, No guarding, No rebound Genitourinary: No simms in urethra Skin: warm, normal color Musculoskeletal: full muscle strength Neurologic: AAOx3 ICD10 Worksheet Patient Problems: Problems Problem Status Onset Cholecystitis Acute Sepsis - Septicemia Active Pulmonary emboli Acute
[2018-07-15] MEDS ORDERED: diphenhydrAMINE 25 MG CAP PO ONE (12:00)
[2018-07-15] MEDS ORDERED: ACETAMINOPHEN 325 MG TAB PO ONE (12:00)
[2018-07-15] MEDS ORDERED: IMMUNE GLOBULIN 5 GM/50 ML VIAL IV ONE (12:00)
[2018-07-15] MEDS ORDERED: IMMUNE GLOBULIN 20 GM/200 ML VIAL IV ONE (12:00)
--- NOTE | 2018-07-15 12:06 | PDMN ---
Medical Necessity Medical necessity: Change to IP, as of 07/14/18, per MD; los >2 mn for ongoing management of acute cholecystitis w/significant RUQ pain; requiring IV abx, NPO status, IVFs, Oncology consult, Heparin drip, IV Dilaudid & Surgery consult w/ intervention; hx DVT/PE on AC, MGUS, hypogammamlobulinemia
--- NOTE | 2018-07-15 12:33 | GCON ---
INPATIENT HEMATOLOGY CONSULTATION DATE OF CONSULTATION: 07/15/2018 REFERRING PHYSICIAN: Ivan Bautista MD OUTPATIENT ONCOLOGIST: Dr. Cristin Sandoval REASON FOR CONSULTATION: Anticoagulation management and potential immunodeficiency. HISTORY OF PRESENT ILLNESS: The patient is a 72-year-old man with a history of MGUS and pulmonary em bolism. He now presents with acute cholecystitis and is going to the operating room tomorrow for cho lecystectomy. We were asked to assist with the management of his hematological disorders as a pertai n to his surgery. He was diagnosed with an IgM kappa MGUS in 2007. He has not had any evidence of progression to overt plasma cell dyscrasia since that time, though he has a high kappa:Lambda ratio. He also has decreas ed immunoglobulins with an IgG, which is approximately 50% of the lower limit of normal. He has not had any history of recurrent infections, but he has received IVIG prophylactically prior to major celine gical procedures. In addition, he had history of 2 unprovoked pulmonary emboli in 2011, and 2016. Luz callahan was on Coumadin for a few years after the first thrombosis. After the second event, he was placed on Xarelto, which he continues today. A hypercoagulable workup, including antiphospholipid antibody syndrome was negative. PAST MEDICAL HISTORY: Otherwise unremarkable. CURRENT MEDICATIONS: Include ceftriaxone, heparin drip, Flagyl. ALLERGIES: He has no known drug allergies. FAMILY HISTORY: Noncontributory. SOCIAL HISTORY: He is a nonsmoker, nondrinker. Lives with his . REVIEW OF SYSTEMS: Aside from pertinent positives in HPI a 14-point review of system is negative. EXAMINATION: VITAL SIGNS: Temperature 36.9, blood pressure 131/71, heart rate 79, oxygen saturation 93% 2 L. VITAL SIGNS: GENERAL: He is well appearing in no acute distress. HEENT: Sclerae anicte eulogio. Oropharynx is clear. NECK: Supple without lymphadenopathy. LUNGS: Clear to auscultation levon aterally. CARDIAC: Regular rhythm. No murmurs, gallops, rubs. ABDOMEN: Quiet bowel sounds. Mode rately distended with some focal tenderness in the right upper quadrant. EXTREMITIES: No edema. NE UROLOGIC: Alert, oriented x3. Strength and sensation are intact. SKIN: No petechiae or purpura. LABORATORY DATA: White count 14.6, predominant neutrophils, hemoglobin 13.9, platelets of 173. His metabolic panel was unremarkable. IMPRESSION: This is a 72-year-old man with a history of monoclonal gammopathy of undetermined signif icance, hypogammaglobulinemia, and pulmonary embolism. He is to go for cholecystectomy tomorrow. Regarding his pulmonary embolism, he is fairly high risk for recurrent thrombosis given the large vol ume of the clot that he has had in the past, as well as unprovoked nature. I recommended bridging wi th heparin drip until the time of surgery. Postoperatively, the heparin drip can be restarted or he could be placed on Lovenox until he is taking oral medications, at which time, the Xarelto can be res tarted, and the heparin medication can be discontinued immediately. This will minimize the time wher e he does not have anticoagulants on board and therefore minimize the risk of thrombosis. With respect to his hypogammaglobinemia, in accordance with the way he has been treated in the past, I will give him IVIG prior to his procedure. His monoclonal gammopathy of undetermined significance was stable at his last visit with Dr. Sandoval in May and is likely not a factor. Thank for the consultation. Please feel free to contact us with any additional questions while the p andrew is in the hospital. /[id number]/MODL
--- NOTE | 2018-07-15 15:30 | ASMTCASEMG ---
Living Arrangements What is your living Answers: With Spouse arrangement? Who do you live with? Type Of Residence What kind of residence do Answers: House you live in? Discharge Plan Comments Coordination Status Comments Notes: Pt is a 72 y/o man admitted for abdominal pain. Pt has a hx of MGUS and recurrent DVT/PE. Surgery has been consulted as well as oncology. Pt will most likely d/c independent when medically stable. No therapies ordered at this time. CM available for changes. Plan: Independent Date Signed: 07/15/2018 03:29 PM Electronically Signed By:JASBIR Alexis
[2018-07-15] MEDS ORDERED: HYDROmorphONE/DILAUDID 2 MG/ML INJ IVP PRN (23:17)
--- NOTE | 2018-07-16 08:43 | SOAPPROG ---
SOAP Progress Note Assessment/Plan: Assessment/Plan: More pain this am IVIG given yesterday for MGUS elizabet-operative prophylaxis On Hep gtt for VTE prophylaxis - held at 8 am WBC down to 14.5 from 19K Bilirubin now 1.4 down from 2.4 HD stable Abd soft positive mild hull's sign NPO p MN Placed on OR schedule for 11 am Risks benefits and alternatives including cholecystostomy tube re addressed Pt wishes to proceed with surgery Lap jimmie with possibility of cholangiogram and open conversion. Written consent obtained after verbal confirmation of understanding Cont ABx ceftriaxone/flagyl for leucocytosis associated with gallbladder obstruction biliary pathogen 07/15/18 07:52 07/15/18 07:57 07/16/18 08:40 Objective: Vital Signs Temp Pulse Resp BP Pulse Ox 36.8 C 72 16 130/72 H 94 07/16/18 04:00 07/16/18 04:00 07/16/18 04:00 07/16/18 04:00 07/16/18 04:00 Laboratory Results 07/15/18 08:06 07/15/18 10:22 07/15/18 07/16/18 07/17/18 05:59 05:59 05:59 Intake Total 1000 1396 Output Total 500 Balance 1000 896 PT 19.9 SEC (12.0-15.0) H 07/14/18 21:35 INR 1.68 (0.83-1.16) H 07/14/18 21:35 ICD10 Worksheet Patient Problems: Problems Problem Status Onset Cholecystitis Acute Sepsis - Septicemia Active Pulmonary emboli Acute
[2018-07-16] MEDS ORDERED: LR 1,000 ML IV ONE (09:29)
[2018-07-16] MEDS ORDERED: BUPIVACAINE 0.5% 30 ML SDV ONE (11:17)
[2018-07-16] MEDS ORDERED: LIDO/EPI 1% **for epidural** 30 ML SDV ONE (11:17)
--- NOTE | 2018-07-16 11:23 | PDANEPAE ---
ANE History of Present Illness Lap Cholecystectomy ANE Past Medical History - Cardiovascular History Hx Hypertension: No Hx Arrhythmias: No Hx Chest Pain: No Hx Coronary Artery / Peripheral Vascular Disease: No Hx CHF / Valvular Disease: No Hx Palpitations: No - Pulmonary History Hx COPD: No Hx Asthma/Reactive Airway Disease: No Hx Recent Upper Respiratory Infection: No Hx Oxygen in Use at Home: No Hx Sleep Apnea: No Sleep Apnea Screening Result - Last Documented: Negative - Endocrine History Hx Diabetes: No Hypothyroid: No Hyperthyroid: No Obesity: mild - Chronic Pain History Chronic Pain: Yes (back) ANE Review of Systems Review of Systems: - Exercise capacity METS (RN): 4 METS - Systems Cardiac: Reports: other (PE HX) ANE Patient History - Allergies Allergies/Adverse Reactions: No Known Allergies Allergy (Verified 07/14/18 20:51) - Home Medications Home Medications: Calcium Carbonate [Tums 500MG (*)] 500 mg PO HS PRN 07/15/18 [Last Taken Unknown ] Omeprazole 20 mg PO DAILY PRN 07/15/18 [Last Taken Unknown] Rivaroxaban [Xarelto 10mg (*)] 10 mg PO DAILY 07/15/18 [Last Taken 07/14/18] celeCOXIB [Celecoxib] 200 mg PO DAILY PRN 07/15/18 [Last Taken Unknown] - NPO status NPO Status: no food or drink >8 hours NPO Since - Liquids (Date): 07/16/18 NPO Since - Liquids (Time): 00:00 NPO Since - Solids (Date): 07/15/18 NPO Since - Solids (Time): 00:00 - Smoking Hx Smoking Status: Never smoked ANE Labs/Vital Signs - Labs Result Diagrams: 07/15/18 08:06 07/15/18 10:22 - Vital Signs Blood Pressure: 137/72 Heart Rate: 66 Respiratory Rate: 16 O2 Sat (%): 90 Height: 177.8 cm Weight: 87.09 kg ANE Physical Exam - Airway Neck exam: FROM Mouth exam: normal dental/mouth exam - Pulmonary Pulmonary: no respiratory distress, no rales or rhonchi - Cardiovascular Cardiovascular: regular rate and rhythym, no murmur, rub, or gallop
[2018-07-16] MEDS ORDERED: IOTHALAMATE MEG (CONRAY) 50 ML VIAL IV ONE (11:27)
[2018-07-16] MEDS ORDERED: fentaNYL 250 MCG/5 ML INJ ONE (11:41)
[2018-07-16] MEDS ORDERED: PROPOFOL/EMULSION 500 MG/50 ML BOTTLE IV ONE ×2 (11:42)
[2018-07-16] MEDS ORDERED: MIDAZOLAM 2 MG/2 ML VIAL ONE (11:48)
[2018-07-16] MEDS ORDERED: NEOSTIGMINE METHYLSULFATE 5 MG/5 ML SYR ONE (13:23)
[2018-07-16] MEDS ORDERED: GLYCOPYRROLATE 0.2 MG/1 ML VIAL ONE ×3 (13:23)
[2018-07-16] MEDS ORDERED: ROCURONIUM 50 MG/5 ML VIAL ONE ×2 (13:23)
[2018-07-16] MEDS ORDERED: ONDANSETRON 4 MG/2 ML VIAL ONE (13:23)
--- NOTE | 2018-07-16 13:27 | POSTOPPROG ---
Post Op Note Date of Operation: 07/16/18 Surgeon: Saran Martinez Telecommunications Line Mechanic: Stella Sprague MD Anesthesiologist: Terri Oliveros Anesthesia: GET(General Endotracheal) Pre-op Diagnosis: cholecystitis Post-op Diagnosis: same Procedure: Laparoscopic Cholecystectomy Findings: acute inflammation. large stone Inf/Abcess present in the surg proc area at time of surgery?: Yes Depth: Organ Space EBL: 50-100 Complications: none Specimen(s): gallbladder to pathology
[2018-07-16] MEDS ORDERED: HYDROmorphONE/DILAUDID 2 MG/ML INJ IVP PRN (13:29)
[2018-07-16] MEDS ORDERED: fentaNYL 100 MCG/2 ML INJ IVP PRN (13:29)
[2018-07-16] MEDS ORDERED: ONDANSETRON 4 MG/2 ML VIAL IVP PRN (13:29)
[2018-07-16] MEDS ORDERED: NALOXONE HCL 0.4 MG/ML INJ IVP PRN (13:29)
[2018-07-16] MEDS ORDERED: ALBUTEROL 3 ML DEYVIAL IH PRN (13:29)
[2018-07-16] MEDS ORDERED: fentaNYL 100 MCG/2 ML INJ ONE (13:52)
--- NOTE | 2018-07-16 13:54 | GOP ---
DATE OF OPERATION: SURGEON: Saran Martinez MD [employer] CONTROLS ENGINEER: Dr. Sylvester Sprague. Due to the complexity anticipated for this case and his other comor bid problems, surgeon was required for an certified surgical assistant. ANESTHESIA: General endotracheal anesthesia was used. ANESTHESIOLOGIST: Dr. Pili Oliveros. PREOPERATIVE DIAGNOSIS: Acute cholecystitis. POSTOPERATIVE DIAGNOSIS: Acute cholecystitis. PROCEDURE PERFORMED: Laparoscopic cholecystectomy. FINDINGS: Acutely inflamed gallbladder with large stone and very short cystic artery. SPECIMENS: Gallbladder to permanent pathology. ESTIMATED BLOOD LOSS: Approximately 100 cc. INDICATIONS: This is a 72-year-old gentleman who comes in with acute cholecystitis by exam and HIDA scan. Also has a history of MGUS and DVTs and PEs for which he is anticoagulated. He has come in fo r urgent cholecystectomy. DESCRIPTION OF PROCEDURE: The patient was brought to the operating room. After induction of endotra cheal anesthesia in supine position, the abdomen was prepped with chlorhexidine and draped sterilely. Time-out procedure was then performed according to institutional standards. Local anesthetic was i nfused in the skin and subcutaneous tissues of the trocar sites. Open supraumbilical trocar placement was done in the standard fashion. Local anesthetic was infused in the skin and subcu subcutaneous tissues and the working trocars were then placed into the subxipho id and right subcostal areas under direct visualization. There was a large amount of inflammation around the gallbladder, which was tensely distended and has a large stone. The gallbladder was thickened and very difficult to grasp. It was decompressed prior to being able to delineate the cystic duct and cystic artery. 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 The cystic duct and cystic artery were trip ly clipped and ligated. The gallbladder was taken off a somewhat intrahepatic gallbladder position u sing electrocautery. Hemostasis was assured and the area is irrigated and aspirated. The gallbladde r was placed into an Endopouch before bringing out through the umbilical incision, which had to be wi dened in order to accommodate the large size of the gallbladder and the stone. After insuring hemostasis, the abdomen was decompressed. The fascia was reapproximated using 0 Vicry l. All 4 ports were reapproximated at skin level using 4-0 Monocryl. Dermabond was applied. Needle , instrument, and sponge counts were verified to be correct a second time. Patient was awakened, ext ubated, and taken to the recovery room in stable condition. No immediate complications. /[id number]/MODL
[2018-07-16] MEDS ORDERED: HYDROmorphONE/DILAUDID 2 MG TAB PO PRN (15:22)
--- NOTE | 2018-07-16 15:22 | HOSPPROG ---
Hospitalist Progress Note Assessment/Plan: #Cholecystitis: s/p choley. Cont broad-abx. ADAT. Added oral opioids. Discussed case with Dr. Martinez #h/o PE: Lovenox this margret. Restart Xarelto in morning. #MGUS: FU oncology #Hypogammaglobulinemia: dosed IVIG before surgery #Diet: ADAT #Disp: cont inpatient admission for IV abx, pain control Subjective: less abdominal pain. Tired after surgery Objective: Vital Signs Temp Pulse Resp BP Pulse Ox 36.6 C 75 16 150/87 H 89 L 07/16/18 15:05 07/16/18 15:05 07/16/18 15:05 07/16/18 15:05 07/16/18 15:05 Laboratory Results 07/15/18 08:06 07/15/18 10:22 07/15/18 07/16/18 07/17/18 05:59 05:59 05:59 Intake Total 1000 1396 1300 Output Total 500 Balance 4852 597 6815 PT 19.9 SEC (12.0-15.0) H 07/14/18 21:35 INR 1.68 (0.83-1.16) H 07/14/18 21:35 - Time Spent With Patient Time Spent with Patient: greater than 35 minutes Time Spent with Patient: Greater than 35 minutes spent on this patients care, greater than 50% of time spent counseling, educating, and coordinating care regarding the above mentioned plan. - Physical Exam Constitutional: no apparent distress Eyes: PERRL Ears, Nose, Mouth, Throat: moist mucous membranes Cardiovascular: regular rate and rhythym Respiratory: no respiratory distress Gastrointestinal: normoactive bowel sounds, distension, other (lap surgical incisions. Quiet BS) Skin: warm Musculoskeletal: full muscle strength Neurologic: AAOx3, CN II-XII Intact Psychiatric: interacting appropriately ICD10 Worksheet Patient Problems: Problems Problem Status Onset Cholecystitis Acute Sepsis - Septicemia Active Pulmonary emboli Acute
[2018-07-16] MEDS ORDERED: BISACODYL 10 MG SUPP PR PRN (15:23)
[2018-07-16] MEDS ORDERED: MAGNESIUM HYDROXIDE 30 ML UDCUP PO PRN (15:23)
[2018-07-16] MEDS ORDERED: LACTULOSE 20 GM/30 ML UDCUP PO PRN (15:23)
[2018-07-16] MEDS ORDERED: POLYETHYLENE GLYCOL 3350 17 GM PKT PO PRN (15:23)
[2018-07-16] MEDS: D5W 1/2 NS 1,000 ML IV SCH (16:02)
[2018-07-16] MEDS ORDERED: CEPACOL LOZENGE PO PRN (19:47)
[2018-07-16] MEDS ORDERED: ENOXAPARIN 80 MG/0.8 ML SYR SC ONE (21:00)
[2018-07-16] MEDS: SENNOSIDES/DOCUSATE SODIUM TAB PO SCH (21:30)
[2018-07-17] MEDS: D5W 1/2 NS 1,000 ML IV SCH (04:03)
[2018-07-17] MEDS ORDERED: RIVAROXABAN 20 MG TAB PO SCH (09:00)
[2018-07-17] MEDS: SENNOSIDES/DOCUSATE SODIUM TAB PO SCH (10:02)
[2018-07-17 12:18] VITALS: BP 124/77
--- NOTE | 2018-07-17 13:10 | SOAPPROG ---
SOAP Progress Note Assessment/Plan: Assessment/Plan: POD#1 s/p lap jimmie for cholecystitis Virtually pain free HD stable Abd soft incisions c/d No peripheral edema Reg diet tolerated D/c abx D/c home if okay with medicine with f/u in office in 1-2 weeks 07/15/18 07:52 07/15/18 07:57 07/16/18 08:40 07/17/18 13:08 Objective: Vital Signs Temp Pulse Resp BP Pulse Ox 36.7 C 54 L 20 124/77 H 89 L 07/17/18 12:00 07/17/18 12:00 07/17/18 12:00 07/17/18 12:00 07/17/18 12:00 Laboratory Results 07/17/18 04:41 07/15/18 10:22 07/16/18 07/17/18 07/18/18 05:59 05:59 05:59 Intake Total 1396 3366 Output Total 500 925 Balance 896 2441 PT 19.9 SEC (12.0-15.0) H 07/14/18 21:35 INR 1.68 (0.83-1.16) H 07/14/18 21:35 ICD10 Worksheet Patient Problems: Problems Problem Status Onset Cholecystitis Acute Sepsis - Septicemia Active Pulmonary emboli Acute
--- NOTE | 2018-07-17 15:01 | GDS ---
DISCHARGE DIAGNOSES: 1. Monoclonal gammopathy of undetermined significance. 2. Osteoarthritis. 3. History of pulmonary embolism/deep venous thrombosis. 4. Gastroesophageal reflux disease. 5. Cholecystitis. CONSULTATIONS: Dr. Juan Chacon. PROCEDURES: Laparoscopic cholecystectomy. HISTORY OF PRESENT ILLNESS: A 72-year-old male who was admitted several days at [facility] for right upper quadrant pain. He had a CT and ultrasound that did not demonstrate inflammation of the gallbladder; however, he had recurrent abdominal pain. HIDA scan showed biliary obstruction. The patient preferred to come to [facility], so presented to our ER. HOSPITAL COURSE: 1. Acute cholecystitis: WBC was elevated at 19. HIDA scan was confirmed. Dr. Martinez was consulte d who performed a laparoscopic cholecystectomy without complication. He was on empiric antibiotics. He is now eating and drinking without issue. There is no evidence of purulence, thus can discontinu e antibiotics. 2. History of DVT/PE: He had a high-volume bilateral PE in November 2016, and has had multiple risk s in the past. He was bridged on a heparin drip and then resumed on his home Xarelto dose. He can f ollow up with Dr. Green. 3. MGUS, stable. 4. Hypogammaglobulinemia: Given IVIG prior to surgery. 5. Atelectasis: He is ambulating, using incentive spirometry. DISPOSITION: Patient is stable for discharge home with his . MEDICATIONS: No new medications. FOLLOW UP: Dr. Green. DIET: Advance slowly. PHYSICAL EXAMINATION: VITAL SIGNS: Today: Temperature 36.7, blood pressure 124/77, heart rate in t he 50s to 60s, respirations 20, 89% on room air. GENERAL: He is well appearing, in no acute distres s. HEENT: Moist mucous membranes. CV: Regular rate and rhythm. LUNGS: Clear. ABDOMEN: Soft, m ildly distended. Bowel sounds are heard. No tenderness. Laparoscopic incision sites are intact. G U: No Ho. MUSCULOSKELETAL: 5/5 upper and lower extremity strength. NEURO: 2 through 12 intact . PSYCH: Alert and oriented x3. TIME SPENT ON DISCHARGE: Greater 30 minutes at bedside discussing followup plan with patient and chaim e was discussed with Dr. Martinez. /[id number]/MODL
== END 2018-07-17 16:06 | disposition home or self-care (01) | DRG 418 ==
LOC: F3E 23:40
PROVIDERS: ADMIT Surgery; ATTEND Surgery
PROC: 0FT44ZZ Resection of Gallbladder, Percutaneous Endoscopic Approach (ICD-10-PCS; principal; 2018-07-16 11:30)
DX: K81.0 Acute cholecystitis (principal); D80.1 Nonfamilial hypogammaglobulinemia; J98.11 Atelectasis; E86.9 Volume depletion, unspecified; K21.9 Gastro-esophageal reflux disease without esophagitis; D47.2 Monoclonal gammopathy; Z86.711 Personal history of pulmonary embolism; Z86.718 Personal history of other venous thrombosis and embolism; Z79.01 Long term (current) use of anticoagulants; Z96.642 Presence of left artificial hip joint
CPT/HCPCS: 85520-90; 97161-GP; G8978-GP-CI; G8979-GP-CI; J0696; J1170; J1459; J1644; J1650; J2250; J2405; J2704; J2710; J3010; Q9961

== ENCOUNTER → 2019-01-04 | Outpatient (CLI) | payer OTHER, MEDICARE | LOC: FIMAGING 11:47 | PROVIDERS: ATTEND Internal Medicine | DX: J40 Bronchitis, not specified as acute or chronic (principal) ==